=== PATIENT | female | born 1985 | race Caucasian/White ===

== ENCOUNTER 2017-07-24 21:07 | Outpatient (CLI) | payer OTHER, BC ==
[2017-07-24 21:51] LABS: APPEARANCE,URINE SLIGHTLY-CLOUDY; BILIRUBIN,URINE NEGATIVE (NEGATIVE); COLOR,URINE YELLOW; GLUCOSE, URINE NEGATIVE (NEGATIVE); KETONES,URINE NEGATIVE (NEGATIVE); LEUKOCYTE ESTERASE,URINE LARGE (NEGATIVE); NITRITE,URINE NEGATIVE (NEGATIVE); PROTEIN,URINE NEGATIVE (NEGATIVE); URINE SPECIFIC GRAVITY 1.014; UROBILINOGEN,URINE NEGATIVE mg/dL (<2.0)
[2017-07-24 21:55] LABS: AMNISURE (ROM) NEGATIVE (NEGATIVE)
[2017-07-24 22:23] LABS: URINE AMPHETAMINES SCREEN NEGATIVE; URINE BARBITURATES SCREEN NEGATIVE; URINE BENZODIAZEPINES SCREEN NEGATIVE; URINE COCAINE SCREEN NEGATIVE; URINE MARIJUANA (THC) SCREEN NEGATIVE; URINE METHADONE SCREEN NEGATIVE; URINE PHENCYCLIDINE SCREEN NEGATIVE
--- NOTE | 2017-07-24 23:16 | Non Stress Test Report ---
Non Stress Test Datetime Report Generated by CPN: 07/24/2017 23:15 DEMOGRAPHIC EGA NST: 39.2 INDICATION Indication for Study: Ordered by Provider; Other Indication for Study (NST) Other: labor check MONITORING Monitor Explained: Monitor Explained; Test Explained; Patient Verbalized Understanding Time on Monitor: 07/24/2017 21:30 Time off Monitor: 07/24/2017 22:31 NST Duration: 61 NST INTERVENTIONS NST Interventions: PO Hydration Physician Notified NST: Randle Yordan BABY A: [id number] BABY A Movement : Present Contraction Frequency : irregular FHR Baseline : 125 Accelerations : 15X15 Decelerations : None Variability : Moderate 6-25bpm NST Review: Meets Criteria for Reactive NST NST Review and Verified By : NDoyle RN NST Results: Reactive NST REPORT Report Trigger: Send Report
== END 2017-07-24 22:40 | disposition home or self-care (01) ==
LOC: LC 21:07
PROVIDERS: ATTEND Obstetrics & Gynecology
PROC: 4A1HXCZ Monitoring of Products of Conception, Cardiac Rate, External Approach (ICD-10-PCS; principal; 2017-07-24)
DX: O47.1 False labor at or after 37 completed weeks of gestation (principal); Z3A.39 39 weeks gestation of pregnancy
CPT/HCPCS: 59025; 80307; 81005; 84112

== ENCOUNTER 2017-08-02 10:20 | Outpatient (CLI) | payer OTHER, BC ==
--- NOTE | 2017-08-03 05:16 | Non Stress Test Report ---
Non Stress Test Datetime Report Generated by CPN: 08/03/2017 05:15 DEMOGRAPHIC EGA NST: 40.4 INDICATION Indication for Study: Ordered by Provider; Other Indication for Study (NST) Other: POST DATES VITAL SIGNS Temperature - NST: 99.0 Pulse - NST: 92 RESP - NST: 18 NBPSYS NST: 121 NBPDIA NST: 60 MONITORING Monitor Explained: Monitor Explained; Test Explained; Patient Verbalized Understanding Time on Monitor: 08/02/2017 10:34 Time off Monitor: 08/02/2017 11:07 NST Duration: 33 NST INTERVENTIONS NST Interventions: PO Hydration; Reposition Patient Physician Notified NST: A THORNTON, CNM REVIEWED STRIP BABY A: [id number] BABY A Movement : Present Contraction Frequency : NONE FHR Baseline : 135 Accelerations : 15X15 Decelerations : None Variability : Moderate 6-25bpm NST Review: Meets Criteria for Reactive NST NST Review and Verified By : Aidee Ang RN NST Results: Reactive NST REPORT Report Trigger: Send Report
== END 2017-08-02 11:10 | disposition home or self-care (01) ==
LOC: LC 10:20
PROVIDERS: ATTEND Obstetrics & Gynecology
PROC: 4A1HXCZ Monitoring of Products of Conception, Cardiac Rate, External Approach (ICD-10-PCS; principal; 2017-08-02)
DX: O48.0 Post-term pregnancy (principal); Z3A.40 40 weeks gestation of pregnancy
CPT/HCPCS: 59025

== ENCOUNTER 2017-08-03 06:57 | Inpatient (IN) | payer OTHER, BC ==
[2017-08-03] MEDS ORDERED: RINGERS SOLUTION,LACTATED 1,000 ML IV PRN (07:24)
[2017-08-03] MEDS ORDERED: OXYTOCIN/NORMAL SALINE 20 UNIT/1,000 ML RTUINJ IV PRN ×2 (07:24→13:32)
[2017-08-03 07:53] LABS: APPEARANCE,URINE SLIGHTLY-CLOUDY; BILIRUBIN,URINE NEGATIVE (NEGATIVE); COLOR,URINE YELLOW; GLUCOSE, URINE NEGATIVE (NEGATIVE); KETONES,URINE NEGATIVE (NEGATIVE); LEUKOCYTE ESTERASE,URINE MODERATE (NEGATIVE); NITRITE,URINE NEGATIVE (NEGATIVE); PROTEIN,URINE NEGATIVE (NEGATIVE); URINE SPECIFIC GRAVITY 1.026; UROBILINOGEN,URINE NEGATIVE mg/dL (<2.0)
[2017-08-03] MEDS ORDERED: RINGERS SOLUTION,LACTATED 300 ML IV ONE (08:00)
[2017-08-03 08:13] LABS: URINE AMPHETAMINES SCREEN NEGATIVE; URINE BARBITURATES SCREEN NEGATIVE; URINE BENZODIAZEPINES SCREEN NEGATIVE; URINE COCAINE SCREEN NEGATIVE; URINE MARIJUANA (THC) SCREEN NEGATIVE; URINE METHADONE SCREEN NEGATIVE; URINE PHENCYCLIDINE SCREEN NEGATIVE
[2017-08-03 08:15] LABS: ABSOLUTE EOSINOPHILS # (AUTO) 0.1 10^3/uL (0.0-0.6); ABSOLUTE LYMPHOCYTES (AUTO) 1.9 10^3/uL (0.5-4.7); ABSOLUTE MONOCYTES (AUTO) 0.7 10^3/uL (0.1-1.4); ABSOLUTE NEUT (AUTO) 4.7 10^3/uL (1.7-8.2); BASOPHILS % (AUTO) 0.2 % (0-2); EOSINOPHILS % (AUTO) 1.1 % (0-6); HEMATOCRIT 34.8 % (36.0-47.0); HEMOGLOBIN 11.9 g/dL (12.0-15.5); LYMPHOCYTES % (AUTO) 25.5 % (13-45); MEAN CORPUSCULAR HEMOGLOBIN 30.5 pg (27.0-33.4); MEAN CORPUSCULAR HGB CONC 34.2 g/dL (32.0-36.0); MEAN CORPUSCULAR VOLUME 89 fl (80-97); MONOCYTES % (AUTO) 9.7 % (3-13); PLATELET COUNT 156 10^3/uL (150-450); RED CELL DISTRIBUTION WIDTH 13.8 % (11.5-14.0); SEGMENTED NEUTROPHILS % (AUTO) 63.5 % (42-78); TOTAL CELLS COUNTED % (AUTO) 100 %; WHITE BLOOD COUNT 7.3 10^3/uL (4.0-10.5)
[2017-08-03] MEDS ORDERED: OXYTOCIN/NORMAL SALINE 20 UNIT/1,000 ML RTUINJ ONE (08:18)
[2017-08-03] MEDS ORDERED: MISOPROSTOL 0.2 MG TABLET ONE (08:18)
[2017-08-03] MEDS ORDERED: LIDOCAINE 1% INJ-PF (10 MG/ML) 30 ML SDV ONE (08:18)
[2017-08-03] MEDS ORDERED: MAG HYDROX/AL HYDROX/SIMETH SUSP 30 ML UDCUP ONE (09:13)
--- NOTE | 2017-08-03 09:51 | Admission Physical ---
Datetime Report Generated by CPN: 08/03/2017 09:51 CURRENT ADMISSION Hx Assessment: The History has been Reviewed and is Current Chief Complaint: Scheduled Induction of Labor Indication for Induction: Post Dates Admit Impression : Postterm, Intrauterine ; No Active Labor Admit Plan: Initiate Labor Induction Protocol ALLERGIES Medication Allergies: Yes Medication Allergies: phenylpropanolamine HCl (08/03/2017); nitrofurantoin macrocrystalline (08/03/2017); chlorpheniramine maleate (08/03/2017); naproxen (08/03/2017); nitrofurantoin (08/03/2017) Latex: No Latex Allergies Food Allergies: none Environmental Allergies: none OBSTETRICAL HISTORY EDC: 07/29/2017 00:00 : 5 Para: 2 Term: 2 : 0 SAB: 2 IAB: 0 Ectopic: 0 Livin Cesareans: 0 VBACs: 0 Multiple Births: 0 Gestational Diabetes: No Rh Sensitization: No Incompetent Cervix: No OSMIN: No Infertility: No ART Treatment: No Uterine Anomaly: No IUGR: No Hx Previous C/S: No Macrosomia: No Hx Loss/Stillborn: No PIH: No Hx : No Placenta Previa/Abruption: No Depression/PP Depression: No PTL/PROM: No Post Hemorrhage: No Current Procedures: Ultrasound; NST Obstetrical History Comments: G1- 2007 SAB, 8 weeks G2- 2009, , 39 weeks, epidural, 4lbs 10oz, induction G3- 2010, SAB, 6 weeks G4- 2016, , 40 weeks, 6lbs 14oz, epidural G5- current SEE RECORDS Alcohol: No Marijuana : No Cocaine: No Other Illicit Drugs: No Cigarettes: Current Some Day Smoker. [id number] Cigarette Frequency: 5 - 10 per day Advised to Stop: Yes MEDICAL HISTORY Diabetes: No Blood Transfusion: No Pulmonary Disease (Asthma, TB): No Breast Disease: No Hypertension: No Code Number Stamper Surgery: No Heart Disease: No Hosp/Surgery: No Autoimmune Disorder: No Anesthetic Complications: No Kidney Disease: No Abnormal Pap Smear: No Neuro/Epilepsy: No Psychiatric Disorders: No Other Medical Diseases: No Hepatitis/Liver Disease: No Significant Family History: No Varicosities/Phlebitis: No Trauma/Violence : No Thyroid Dysfunction: No INFECTIOUS HISTORY Gonorrhea: No Genital Herpes: No Chlamydia: No Tuberculosis: No Syphilis: No Hepatitis: No HIV/AIDS Exposure: No Rash or Viral Illness: No HPV: No PHYSICAL EXAM General: Normal HEENT: Deferred Neurologic: Normal Thyroid: Normal Heart: Normal Lungs: Normal Breast: Deferred Back: Normal Abdomen: Normal Genitourinary Exam: Normal Extremities: Normal DTRs: Normal Pelvic Type: Adequate Vital Signs: Reviewed MEMBRANES Membranes: Intact FETUS A EGA: 40.5 Monitoring: External US FHR- Baseline: 130 Variability: Moderate 6-25bpm Accelerations: 15X15 Decelerations: None Admit Comment: Admitted to LD for IOL for 40.3, EFW 8-9, pelvis proven for 6-14, Cat 1 strip PLANS FOR LABOR AND DELIVERY Labor and Delivery: None Pain Management: None Feeding Preference: Breast Benefit of Breast Feed Discussed: Yes Circumcision: No INFORMED CONSENT Assignment: Vic Kearney MD Signature: with User ID: Gabby : with User ID: [email or web address]
[2017-08-03] MEDS ORDERED: MAG HYDROX/AL HYDROX/SIMETH SUSP 30 ML UDCUP PO ONE (10:45)
--- NOTE | 2017-08-03 11:35 | L&D Progress Notes ---
PROGRESS NOTES Datetime Report Generated by CPN: 08/03/2017 11:35 PROGRESS NOTE Impression: Reassuring Heart Rate Procedures: Artificial ROM; Sterile Vag Exam Procedures- Other: thick mec Plan: Continue Present Management; Induction Vital Signs : Reviewed; Within Normal Limits Comment: Increase pain with uc's, OOB to br, VE 4/80/vtx/0, AROM, thick mec, requesting epidural MEMBRANES Membranes: Intact FETUS A FHR - Baseline: 130 Monitoring: External US Variability: Moderate 6-25bpm Accelerations: 15X15 Decelerations: None : 40.3 SIGNATURE SIGNATURE: ,[id number];14,[id number];,[id number] SIGNATURE: ,[id number];14,[id number] SIGNATURE: 14,[id number] SIGNATURE: [id number] Assignment: Vic Kearney MD Signature: with User ID: Gabby : with User ID: [email or web address]
[2017-08-03] MEDS ORDERED: MAGNESIUM HYDROXIDE SUSP 30 ML UDCUP PO PRN (13:32)
[2017-08-03] MEDS ORDERED: NA PHOS,M-B/NA PHOS,DI-BA (ADULT) 133 ML ENEMA PR PRN (13:32)
[2017-08-03] MEDS ORDERED: ACETAMINOPHEN 650 MG SUPP.RECT PR PRN (13:32)
[2017-08-03] MEDS ORDERED: DIBUCAINE 1% OINTMENT 28 GM TP PRN ×2 (13:32→14:17)
[2017-08-03] MEDS ORDERED: MISOPROSTOL 0.2 MG TABLET PR PRN (13:32)
[2017-08-03] MEDS ORDERED: DIPHENHYDRAMINE HCL 25 MG CAPSULE PO PRN (13:32)
[2017-08-03] MEDS ORDERED: PROMETHAZINE HCL 25 MG SUPP.RECT PR PRN (13:32)
[2017-08-03] MEDS ORDERED: MEASLES,MUMPS&RUBELLA VACC/PF 0.5 ML VIAL SUBCUT PRN (13:32)
[2017-08-03] MEDS ORDERED: DIPH/PERTUSS(ACELL)/TETANUS VAC/PF 0.5 ML SYR (>=10YO) IM PRN (13:32)
[2017-08-03] MEDS ORDERED: GLYCERIN/WITCH HAZEL LEAF 1 EACH MED..PAD TP PRN (13:32)
[2017-08-03] MEDS ORDERED: ACETAMINOPHEN WITH CODEINE #3 TABLET PO PRN (13:32)
[2017-08-03] MEDS ORDERED: BENZOCAINE/MENTHOL AEROSOL SPRAY 56 ML TOP PRN (13:32)
[2017-08-03] MEDS ORDERED: PROMETHAZINE HCL 25 MG TABLET PO PRN (13:32)
[2017-08-03] MEDS ORDERED: PSEUDOEPHEDRINE HCL 30 MG TABLET PO PRN (13:32)
[2017-08-03] MEDS ORDERED: PROMETHAZINE HCL INJ 25 MG/1 ML VIAL IV PRN (13:32)
[2017-08-03] MEDS ORDERED: BUPIVACAINE HCL 0.25 % INJ/PF (2.5 MG/1 ML) 30 ML VIAL ONE (13:35)
[2017-08-03] MEDS ORDERED: FENTANYL/BUPIVACAINE/NS/PF 300 MCG/150 ML RTUINJ EPI ONE (13:35)
[2017-08-03] MEDS ORDERED: IBUPROFEN 800 MG TABLET ONE (13:45)
[2017-08-03] MEDS ORDERED: METHYLERGONOVINE MALEATE INJ/PF 0.2 MG/1 ML AMPULE IM ONE (15:25)
[2017-08-03] MEDS ORDERED: METHYLERGONOVINE MALEATE INJ/PF 0.2 MG/1 ML AMPULE ONE (15:26)
--- NOTE | 2017-08-03 15:46 | Delivery Summary ---
Del Sum A-C Datetime Report Generated by CPN: 08/03/2017 15:45 DELIVERY PERSONNEL DELIVERY PERSONNEL: [id number] Delivery Doctor:: Gay Kennedy CNM Nurse Dental Equipment Mechanic Certified:: Gay Kennedy CNM Labor and Delivery Nurse:: Jacquelin Thompson RNcable ferryboat operator Nurse:: SARAI Lockhart Nursery Nurse:: LEOBARDO Jin/KEVIN: Daria Ramos CNA II MATERNAL INFORMATION Delivery Anesthesia: Epidural Medications After Delivery: Pitocin Bolus-Please Comment; Pitocin Drip 20 Units/1000ml NSS; Cytotec 600mcg Per Rectum/Vagina Meds After Delivery Comment: cytotec 600 mcg VA by CNM Maternal Complications: None Provider Comments: viable male from OA to BOB over intact perineum, NC x 1, unable to reduce cord before delivery, placed on mothers abd, cord clamped and cut after 2 minutes, spont delivery of grossly nl intact placenta, 3 VC, baby and mom remain in recovery in stable condition. IV Pitocin and cytotec 600 mcg via rectum. hsb at for delivery, bonding well with baby LABOR SUMMARY EDC: 07/29/2017 00:00 No. Babies in Womb: 1 Attempted: No Labor Anesthesia: Epidural LABOR INFORMATION Reason for Induction: Post Dates Onset of Labor: 08/03/2017 11:30 Complete Dilatation: 08/03/2017 13:15 Oxytocin: Induction Group B Beta Strep: Negative Antibiotics # of Doses: 0 Steroids Given: None Reason Steroids Not Administered: Not Applicable MEMBRANES Membranes Rupture Method: Artificial Rupture of Membranes: 08/03/2017 11:30 Length of Rupture (hr): 1.85 Amniotic Fluid Color: Heavy Meconium Amniotic Fluid Amount: Moderate Amniotic Fluid Odor: Normal STAGES OF LABOR Stage 1 hr: 1 Stage 1 min: 45 Stage 2 hr: 0 Stage 2 min: 6 Stage 3 hr: 0 Stage 3 min: 5 Total Time in Labor hr: 1 Total Time in Labor min: 56 VAGINAL DELIVERY Episiotomy: None Laceration #1: None Laceration Extension #1: N/A Laceration Repair: Not Applicable Sponge Count Correct: N/A Sharps Count Correct: N/A CSECTION DELIVERY Primary Indication: N/A Secondary Indication: N/A CSection Incidence: N/A Labor: N/A Elective: N/A CSection Incision: N/A BABY A INFORMATION Delivery Date/Time: 08/03/2017 13:21 Method of Delivery: Vaginal Born in Route : No : N/A Forceps: N/A Vacuum Extraction: N/A Shoulder Dystocia : No PRESENTATION/POSITION BABY A Presentation: Cephalic Cephalic Presentation: Vertex Vertex Position: Right Occipital Anterior Breech Presentation: N/A PLACENTA INFORMATION BABY A Placenta Delivery Time : 08/03/2017 13:26 Placenta Method of Delivery: Spontaneous Placenta Status: Delivered SCORES BABY A Heart Rate 1 min: >100 bpm Resp Effort 1 min: Good Cry Reflex Irritability 1 min: Cough or Sneeze or Pulls Away Muscle Tone 1 min: Active Motion Color 1 min: Blue/Pale Resuscitation Effort 1 min: Tactile Stimulation SCORE 1 MIN: 8 Heart Rate 5 min: >100 bpm Resp Effort 5 min: Good Cry Reflex Irritability 5 min: Cough or Sneeze or Pulls Away Muscle Tone 5 min: Active Motion Color 5 min: Body [place], Extremities Blue Resuscitation Effort 5 min: N/A SCORE 5 MIN: 9 Resuscitation Effort 10 min: N/A INFORMATION BABY A Gestational Age at Delivery: 40.5 Gestational Status: Full Term- 39- 40.6 Weeks Infant Outcome : Liveborn Condition : Stable Infant Sex: Male IDENTIFICATION BABY A Verification Date/Time: 08/03/2017 14:18 ID Band Number: [id number] Mother's Name Verified: Yes RN Verifying : MYarely Walden, RN, C. Sav, RN WEIGHT/LENGTH BABY A Infant Birthweight (gm): 3282 Weight (lb): 7 Infant Weight (oz): 4 Infant Length (in): 19.00 Length (cm): 48.26 CORD INFORMATION BABY A No. Cord Vessels: 3 Nuchal Cord : Around Neck x1, Loose Cord Blood Taken: Yes-For Eval (Mom's Blood Type - or O+) Suction: Mouth; Nose ASSESSMENT BABY A Complications: Multiple Variable Decels; Meconium Physical Findings at Delivery: Within Normal Limits Infant Respirations: Appears Normal Skin to Skin: Yes Care By: Kennedy Green RN Transferred To: Remains with Mother BABY B INFORMATION : N/A
[2017-08-03] MEDS: DOCUSATE SODIUM 100 MG CAPSULE PO SCH (17:36)
[2017-08-03] MEDS: FERROUS SULFATE 325 MG TABLET PO SCH (17:36)
[2017-08-03] MEDS: IBUPROFEN 800 MG TABLET PO SCH ×2 (17:36→22:12)
[2017-08-03] MEDS ORDERED: FAMOTIDINE 20 MG TABLET PO SCH (22:00)
[2017-08-04] MEDS: ACETAMINOPHEN WITH CODEINE #3 TABLET PO PRN ×2 (01:52→09:45)
[2017-08-04] MEDS: IBUPROFEN 800 MG TABLET PO SCH ×3 (05:09→21:16)
[2017-08-04 07:41] LABS: HEMATOCRIT 32.7 % (36.0-47.0); HEMOGLOBIN 11.2 g/dL (12.0-15.5); MEAN CORPUSCULAR HEMOGLOBIN 30.6 pg (27.0-33.4); MEAN CORPUSCULAR HGB CONC 34.1 g/dL (32.0-36.0); MEAN CORPUSCULAR VOLUME 90 fl (80-97); PLATELET COUNT 120 10^3/uL (150-450); RED BLOOD COUNT 3.64 10^6/uL (3.72-5.28); WHITE BLOOD COUNT 9.6 10^3/uL (4.0-10.5)
[2017-08-04] MEDS: SENNOSIDES/DOCUSATE 8.6-50 MG 1 EACH TABLET PO SCH (09:44)
[2017-08-04] MEDS: PRENATAL VITAMIN W DHA CAPSULE PO SCH (09:45)
[2017-08-04] MEDS: DOCUSATE SODIUM 100 MG CAPSULE PO SCH ×2 (09:45→18:19)
[2017-08-04] MEDS: FERROUS SULFATE 325 MG TABLET PO SCH ×2 (09:45→18:18)
--- NOTE | 2017-08-04 10:56 | PDOC PROGRESS REPORT ---
Subjective-OB Progress Note for:: 08/04/17 Subjective: s/p vaginal delivery bonding well with infant ff@u-1 mild lochia received tylenol #3 for pain/ pain well managed now resting at the moment d/c in AM Physical Exam (OB) Vital Signs: Temp Pulse Resp BP Pulse Ox 97.8 F 72 17 95/59 L 98 08/04/17 07:46 08/04/17 07:46 08/04/17 07:46 08/04/17 07:46 08/04/17 07:46 Intake & Output 08/03/17 08/04/17 08/05/17 06:59 06:59 06:59 Intake Total 200 Balance 200 Weight 77.8 kg - PIH/Pre-Eclampsia Clonus: Negative Headache: Absent Epigastric Pain: No Visual Changes: No - Bilateral Tubal Ligation Dressing Removed: No - Lochia Lochia Amount: Small 10-25 ml Lochia Color: Rubra/Red - Abdomen Description: Tender, Soft Hernia Present: No Fundal Description: Firm, Midline Fundal Height: u/u - u/2 Objective-Diagnostic Laboratory: 08/04/17 06:49 08/04/17 06:49 WBC 9.6 RBC 3.64 L Hgb 11.2 L Hct 32.7 L MCV 90 MCH 30.6 MCHC 34.1 RDW 14.0 Plt Count 120 L
[2017-08-05] MEDS: ACETAMINOPHEN WITH CODEINE #3 TABLET PO PRN (01:03)
[2017-08-05] MEDS: IBUPROFEN 800 MG TABLET PO SCH ×2 (05:04→14:35)
[2017-08-05 08:39] VITALS: BP 98/54
[2017-08-05] MEDS: PRENATAL VITAMIN W DHA CAPSULE PO SCH (09:12)
[2017-08-05] MEDS: SENNOSIDES/DOCUSATE 8.6-50 MG 1 EACH TABLET PO SCH (09:12)
[2017-08-05] MEDS: FERROUS SULFATE 325 MG TABLET PO SCH (09:12)
[2017-08-05] MEDS: DOCUSATE SODIUM 100 MG CAPSULE PO SCH (09:12)
--- NOTE | 2017-08-05 13:06 | PDOC DISCHARGE SUMMARY ---
Final Diagnosis Discharge Date: 08/05/17 Discharge Data - Discharge Medication Prescriptions: Docusate Sodium [Colace 100 mg Capsule] 100 mg PO BID #60 capsule Ibuprofen [Motrin 800 mg Tablet] 800 mg PO Q8 #60 tablet Home Medications: Pnv95/Iron Fum/Folic Acid [ Caplet] 1 each PO DAILY 03/10/15 Docusate Sodium [Colace 100 mg Capsule] 100 mg PO BID #60 capsule 08/05/17 Ibuprofen [Motrin 800 mg Tablet] 800 mg PO Q8 #60 tablet 08/05/17 Gestational Age: 40.5 Reason(s) for Admission: Induction of Labor Procedures: NST Intrapartum Procedure(s): Spontaneous Vaginal Delivery - Data Baby 1 Male at 1 minute: 8 at 5 minutes: 9 Weight: 3282 kg Home with Mother: No Complications: Yes - bili lights - Diagnosis Test Laboratory: Temp Pulse Resp BP Pulse Ox 98.0 F 68 18 98/54 L 98 08/05/17 12:24 08/05/17 12:24 08/05/17 12:24 08/05/17 12:24 08/05/17 12:24 08/03/17 08/03/17 08/04/17 07:05 08:01 06:49 RBC 3.90 3.64 L Hgb 11.9 L 11.2 L Hct 34.8 L 32.7 L Urine Opiates Screen NEGATIVE - Discharge information/Instructions Discharge Activity: Activity As Tolerated, Pelvic Rest, No tub bath Discharge Diet: Regular Disposition: HOME, SELF-CARE Follow up with: [facility] in: 4, Weeks
== END 2017-08-05 15:04 | disposition home or self-care (01) | DRG 775 ==
LOC: LR 06:57 → 2S 16:47
PROVIDERS: ADMIT Obstetrics & Gynecology; ATTEND Obstetrics & Gynecology
PROC: 10E0XZZ Delivery of Products of Conception, External Approach (ICD-10-PCS; principal; 2017-08-03)
PROC: 3E0234Z Introduction of Serum, Toxoid and Vaccine into Muscle, Percutaneous Approach (ICD-10-PCS; 2017-08-05)
DX: O48.0 Post-term pregnancy (principal); O99.334 Smoking (tobacco) complicating childbirth; F17.210 Nicotine dependence, cigarettes, uncomplicated; O77.0 Labor and delivery complicated by meconium in amniotic fluid; O76 Abnormality in fetal heart rate and rhythm complicating labor and delivery; O69.81X0 Labor and delivery complicated by cord around neck, without compression, not applicable or unspecified; Z3A.40 40 weeks gestation of pregnancy; Z37.0 Single live birth; Z23 Encounter for immunization
CPT/HCPCS: 36415; 80307; 81005; 85025; 85027; 86592; 86850; 86900; 86901; 90715; 94760; J2210; J2590; J3010; J3490

== ENCOUNTER 2017-11-04 05:44 | Day surgery (SDC) | payer OTHER, BC ==
[2017-10-29 10:38] LABS: APPEARANCE,URINE CLEAR; BILIRUBIN,URINE NEGATIVE (NEGATIVE); COLOR,URINE STRAW; GLUCOSE, URINE NEGATIVE (NEGATIVE); KETONES,URINE NEGATIVE (NEGATIVE); LEUKOCYTE ESTERASE,URINE LARGE (NEGATIVE); NITRITE,URINE NEGATIVE (NEGATIVE); PROTEIN,URINE NEGATIVE (NEGATIVE); URINE SPECIFIC GRAVITY 1.002; UROBILINOGEN,URINE NEGATIVE mg/dL (<2.0)
[2017-10-29 10:52] LABS: HEMATOCRIT 40.7 % (36.0-47.0); HEMOGLOBIN 14.1 g/dL (12.0-15.5); MEAN CORPUSCULAR HEMOGLOBIN 30.3 pg (27.0-33.4); MEAN CORPUSCULAR HGB CONC 34.6 g/dL (32.0-36.0); MEAN CORPUSCULAR VOLUME 88 fl (80-97); PLATELET COUNT 186 10^3/uL (150-450); RED BLOOD COUNT 4.64 10^6/uL (3.72-5.28); RED CELL DISTRIBUTION WIDTH 13.4 % (11.5-14.0); WHITE BLOOD COUNT 8.3 10^3/uL (4.0-10.5)
[~2017-11-04 05:44] MED LIST: LACTATED RINGERS 1000 ML IV PRN; LIDOCAINE 0.5% INJ-PF (5 MG/ML) 50 ML SDV SUBCUT PRN
[2017-11-04] MEDS ORDERED: ONDANSETRON HCL INJ/PF 4 MG/2 ML SDV ONE (07:22)
[2017-11-04] MEDS ORDERED: DEXAMETHASONE SOD PHOSPHATE INJ 4 MG/1 ML VIAL ONE (07:22)
[2017-11-04] MEDS ORDERED: PROPOFOL INJ 200 MG/20 ML VIAL IV ONE (07:22)
[2017-11-04] MEDS ORDERED: MIDAZOLAM 2 MG/2 ML INJ ONE (07:22)
[2017-11-04] MEDS ORDERED: FENTANYL CITRATE INJ/PF 100 MCG/2 ML AMPUL ONE (07:22)
[2017-11-04] MEDS ORDERED: HYDROMORPHONE HCL INJ/PF 2 MG/ML AMPULE ONE (07:23)
[2017-11-04] MEDS ORDERED: MORPHINE SULFATE 10 MG/ML INJ IV PRN (07:51)
[2017-11-04] MEDS ORDERED: MEPERIDINE HCL/PF INJ 25 MG/1 ML DISP.SYRIN IV PRN (07:51)
[2017-11-04] MEDS ORDERED: PROMETHAZINE HCL INJ 25 MG/1 ML VIAL IV PRN ×2 (07:51)
[2017-11-04] MEDS ORDERED: FENTANYL CITRATE INJ/PF 100 MCG/2 ML AMPUL IV PRN ×3 (07:51)
[2017-11-04] MEDS ORDERED: OXYCODONE-ACETAMINOPHEN 5-325 MG TABLET PO PRN ×4 (07:51→08:27)
[2017-11-04] MEDS ORDERED: PROMETHAZINE HCL INJ 25 MG/1 ML VIAL ONE (08:14)
[2017-11-04] MEDS ORDERED: IBUPROFEN 800 MG TABLET PO PRN (08:26)
[2017-11-04] MEDS ORDERED: MORPHINE SULFATE 10 MG/ML INJ IM PRN (08:26)
--- NOTE | 2017-11-04 08:41 | OPERATIVE REPORT E ---
Operative Report NAME: MEGHA AYON : 1985 AGE: 32Y DATE OF SURGERY: 11/04/2017 ROOM: PREOPERATIVE DIAGNOSES: 1. Undesired fertility. 2. Ovarian cancer prevention. POSTOPERATIVE DIAGNOSES: 1. Undesired fertility. 2. Ovarian cancer prevention. SURGEON: KEITH KAY M.D. SPORTS MEDICINE TRAINER: First Fahad Luong Stretcher Drier Operator ANESTHESIA: Dr. Bangura with general. FINDINGS: Normal uterus, tubes, and ovaries. COMPLICATIONS: None. ESTIMATED BLOOD LOSS: 10 mL. SPECIMENS REMOVED: Bilateral fallopian tubes. PROCEDURE: Laparoscopic bilateral salpingectomy. PROCEDURE IN DETAIL: The patient was taken to the operating room and prepared and draped in a normal sterile fashion in the dorsal lithotomy position. Under sterile conditions, an in-and-out cath was performed with approximately 10 mL of clear urine. Sterile speculum was placed in the vagina and the cervix was prepped with Betadine and grasped on the anterior lip with a single-toothed tenaculum. The Hulka clamp was then placed through the cervix for uterine manipulation without difficulty. Sterile speculum was removed from the vagina. Gloves were changed and attention was turned to the upper portion of the case where an umbilical skin incision was made to accommodate a 5 mm port. Through this incision, I introduced a Veress needle and peritoneal cavity placement was confirmed with free flow of sterile water and an entering pressure of less than 5 mmHg. The abdomen was inflated to 15 mmHg with approximately 2 L of CO2 gas. The Veress needle was removed and the 5 mm port was placed through this incision. The camera was then introduced. The patient was placed in steep Trendelenburg, and under direct visualization, two 5 mm ports were placed approximately 10 cm on either side of the umbilicus. The bowel was swept away with an atraumatic grasper. Beginning with the right fallopian tube, this was grasped with an atraumatic grasper and the LigaSure was used to remove the fallopian tube following the mesosalpinx just below the tube at the fundus of the uterus. This was transected using the LigaSure as well until the specimen was free and it was removed through the port. This was repeated on the left fallopian tube without difficulty. The abdomen was surveyed and everything was hemostatic. The ports were then removed and the abdomen was deflated through the umbilical port and then this port was removed and the 3 skin sites were closed with a subcutaneous stitch with 4-0 Vicryl. The patient tolerated the procedure well. Sponge, lap, and needle counts were correct x2. The Hulka clamp was removed at this point and the patient was taken to recovery in stable condition. DICTATING PHYSICIAN: KEITH KAY M.D. [id number] PHY#: [id number] ID: [id number] JOB#: [id number] ACCT: [id number] cc:KEITH KAY M.D. >
[2017-11-04] MEDS ORDERED: OXYCODONE-ACETAMINOPHEN 5-325 MG TABLET ONE (09:01)
[2017-11-04 10:54] VITALS: BP 100/62
[2017-11-04] MEDS ORDERED: ROCURONIUM BROMIDE INJ 50 MG/5 ML VIAL IV ONE (15:19)
[2017-11-04] MEDS ORDERED: SUCCINYLCHOLINE CHLORIDE INJ 200 MG/10 ML VIAL ONE (15:19)
== END 2017-11-04 10:00 | disposition home or self-care (01) ==
LOC: OROUT 05:44
PROVIDERS: ATTEND Obstetrics & Gynecology
DX: Z30.2 Encounter for sterilization (principal); Z40.02 Encounter for prophylactic removal of ovary(s); N83.8 Other noninflammatory disorders of ovary, fallopian tube and broad ligament; F17.210 Nicotine dependence, cigarettes, uncomplicated; G43.909 Migraine, unspecified, not intractable, without status migrainosus; Z88.1 Allergy status to other antibiotic agents; Z88.6 Allergy status to analgesic agent; Z88.8 Allergy status to other drugs, medicaments and biological substances
CPT/HCPCS: 36415; 85027; 81005; 81025; 88302 ×2; 58661; J2250; J3490; J1100; J1170; J2550; J0330; J2405; J2704; 840; J3010

== ENCOUNTER 2018-11-09 09:33 | Day surgery (SDC) | payer OTHER, BC ==
[2018-11-07 10:49] LABS: HEMATOCRIT 43.2 % (36.0-47.0); HEMOGLOBIN 14.6 g/dL (12.0-15.5); MEAN CORPUSCULAR HEMOGLOBIN 30.7 pg (27.0-33.4); MEAN CORPUSCULAR HGB CONC 33.9 g/dL (32.0-36.0); MEAN CORPUSCULAR VOLUME 90 fl (80-97); PLATELET COUNT 155 10^3/uL (150-450); RED BLOOD COUNT 4.77 10^6/uL (3.72-5.28); RED CELL DISTRIBUTION WIDTH 12.8 % (11.5-14.0); WHITE BLOOD COUNT 6.1 10^3/uL (4.0-10.5)
[2018-11-07 10:58] LABS: APPEARANCE,URINE SLIGHTLY-CLOUDY; BILIRUBIN,URINE NEGATIVE (NEGATIVE); COLOR,URINE YELLOW; GLUCOSE, URINE NEGATIVE (NEGATIVE); KETONES,URINE NEGATIVE (NEGATIVE); LEUKOCYTE ESTERASE,URINE TRACE (NEGATIVE); NITRITE,URINE NEGATIVE (NEGATIVE); PROTEIN,URINE NEGATIVE (NEGATIVE); URINE SPECIFIC GRAVITY 1.016; UROBILINOGEN,URINE NEGATIVE mg/dL (<2.0)
[2018-11-09] MEDS ORDERED: LIDOCAINE 1%/EPINEPHRINE INJ 20 ML VIAL ONE (10:02)
[2018-11-09] MEDS ORDERED: FENTANYL CITRATE INJ/PF 100 MCG/2 ML AMPUL ONE ×2 (10:06→11:26)
[2018-11-09] MEDS ORDERED: PROPOFOL INJ 200 MG/20 ML VIAL IV ONE (10:06)
[2018-11-09] MEDS ORDERED: MIDAZOLAM 2 MG/2 ML INJ ONE (10:06)
[2018-11-09] MEDS ORDERED: FENTANYL CITRATE INJ/PF 100 MCG/2 ML AMPUL IV PRN ×3 (10:13)
[2018-11-09] MEDS ORDERED: PROMETHAZINE HCL INJ 25 MG/1 ML VIAL IV PRN ×2 (10:13)
[2018-11-09] MEDS ORDERED: OXYCODONE-ACETAMINOPHEN 5-325 MG TABLET PO PRN ×2 (10:13)
[2018-11-09] MEDS ORDERED: MEPERIDINE HCL/PF INJ 25 MG/1 ML DISP.SYRIN IV PRN (10:13)
[2018-11-09] MEDS ORDERED: ONDANSETRON HCL INJ/PF 4 MG/2 ML SDV ONE ×2 (11:24→12:49)
[2018-11-09] MEDS ORDERED: IBUPROFEN 800 MG TABLET ONE (12:38)
[2018-11-09] MEDS ORDERED: DEXAMETHASONE SOD PHOSPHATE INJ 4 MG/1 ML VIAL ONE (12:49)
[2018-11-09] MEDS ORDERED: LIDOCAINE 2% INJ-PF (20 MG/ML) 2 ML AMPUL ONE (12:49)
[2018-11-09 13:51] VITALS: BP 111/53
--- NOTE | 2018-11-30 12:13 | Operative Report ---
Operative Report DATE OF SURGERY: 11/09/18 ANESTHESIA: GA PROCEDURE: Anesthesia: [] Anesthesia: LMAC EBL: less than 10ml IVF: [] UOP: void prior to OR Specimens: [] Complications: None Findings:[] Indications: [] Procedure: The patient was taken to the Operating Room where general anesthesia was obtained without difficulty. She was prepped and draped in the normal sterile fashion in the dorsal lithotomy position. Exam under anesthesia was performed and noted above. A speculum was placed in the vagina. The anterior cervix was grasped with a single-tooth tenaculum and the uterus sounded to 8 cm after paracervical block was performed with 8 mL of 1% lidocaine with epinephrine. Sequential dilators were then used to dilate the cervix to accommodate the Myosure hysteroscope. The hysteroscope was then gently advanced into the uterine cavity in the usual fashion with visualization of the endometrial polyp as noted above. The Myosure device was then advanced through the hysteroscope and used to easily remove the endometrial polyp noted within intrauterine cavity. The Myosure device was then removed and the hysteroscope removed. At this time gentle curettage was performed until a gritty texture was noted. All instruments were removed from the patient's cervix and vagina. Si lver nitrate was applied to the tenaculum site for hemostasis. Sponge lap needle and instrument counts are correct 2. No perioperative antibiotics were given as is not indicated for this procedure. The patient tolerated the procedure well and was taken to the recovery area awake and in stable condition.
== END 2018-11-09 13:15 | disposition home or self-care (01) ==
LOC: OROUT 09:33
PROVIDERS: ATTEND Student in an Organized Health Care Education/Training Program
DX: N93.9 Abnormal uterine and vaginal bleeding, unspecified (principal); F17.210 Nicotine dependence, cigarettes, uncomplicated
CPT/HCPCS: 36415; 85027; 81025; 81001; 88305 ×2; 00952; 58563; J2250; J1100; J3010; J3490 ×2; J2405; J2704; 952